=== PATIENT | male | born 1975 | race Caucasian/White ===

== ENCOUNTER → 2019-04-30 | Outpatient (CLI) | payer BC ==
--- NOTE | 2019-04-30 12:20 | P.STRESS ---
- Stress Test Note Stress Test Results/Findings: Exam Performed: stress echo exercise Exam Date: 04/30/19 Reason for Exam: Abnormal EKG Height: 6 ft 1 in Weight: 102.058 kg Protocol: Donnie Stage: 5 Duration of Exercise: 12:46 Resting Heart Rate: 64 Resting Blood Pressure: 106/61 Maximum Achieved Heart Rate: 172 Maximum Achieved Blood Pressure: 189/102 85% PMHR: 152 100% PMHR: 179 METS: 12.9 Technologist Comment: Stress Test Results/Findings: This is a 43-year-old gentleman with history of hypertension being evaluated for symptoms of chest pain. Stress data: Baseline EKG showed sinus rhythm with normal NC interval and QRS duration with mild J-point elevation in inferior leads size to fit the repolarization. Blood pressure at rest is 106/61 with pulse rate of 64. Patient walked on a Donnie protocol for 12 minutes and 46 seconds achieving a maximum heart rate of 172 with peak blood pressure of 189/102. EKGs taken during and after exercise did not reveal any significant changes from the baseline. Echo data: Baseline echo images show normal wall motion and thickening. Exercise echo images showed augmentation of wall motion and thickening in all the segments. Final impression: #1. Negative stress test #2. Excellent exercise capacity #3. Negative stress echo.
--- NOTE | 2019-05-01 11:53 | ECHOS ---
- Stress Test Note Stress Test Results/Findings: Exam Performed: stress echo exercise Exam Date: 04/30/19 Reason for Exam: Abnormal EKG Height: 6 ft 1 in Weight: 102.058 kg Protocol: Donnie Stage: 5 Duration of Exercise: 12:46 Resting Heart Rate: 64 Resting Blood Pressure: 106/61 Maximum Achieved Heart Rate: 172 Maximum Achieved Blood Pressure: 189/102 85% PMHR: 152 100% PMHR: 179 METS: 12.9 Technologist Comment: Stress Test Results/Findings: This is a 43-year-old gentleman with history of hypertension being evaluated for symptoms of chest pain. Stress data: Baseline EKG showed sinus rhythm with normal MA interval and QRS duration with mild J-point elevation in inferior leads size to fit the repolarization. Blood pressure at rest is 106/61 with pulse rate of 64. Patient walked on a Donnie protocol for 12 minutes and 46 seconds achieving a maximum heart rate of 172 with peak blood pressure of 189/102. EKGs taken during and after exercise did not reveal any significant changes from the baseline. Echo data: Baseline echo images show normal wall motion and thickening. Exercise echo images showed augmentation of wall motion and thickening in all the segments. Final impression: #1. Negative stress test #2. Excellent exercise capacity #3. Negative stress echo. SULEMA
== END | disposition home or self-care (01) ==
LOC: RADNMMAIN 09:59
PROVIDERS: ATTEND Family Medicine
DX: I11.0 Hypertensive heart disease with heart failure (principal); R94.31 Abnormal electrocardiogram [ECG] [EKG]; I50.9 Heart failure, unspecified
CPT/HCPCS: 93351

== ENCOUNTER → 2019-05-26 | Outpatient (CLI) | payer BC ==
--- NOTE | 2019-05-26 16:02 | XR ---
EXAMINATION TYPE: XR chest 2V DATE OF EXAM: 05/26/2019 COMPARISON: NONE HISTORY: Cough TECHNIQUE: Frontal and lateral views of the chest are obtained. FINDINGS: There is no focal air space opacity, pleural effusion, or pneumothorax postsurgical change s of the left shoulder. Seen. The cardiac silhouette size is within normal limits. The osseous str uctures are intact. IMPRESSION: No acute cardiopulmonary process.
== END | disposition home or self-care (01) ==
LOC: RADXRMAIN 15:12
PROVIDERS: ATTEND Family Medicine
DX: J20.9 Acute bronchitis, unspecified (principal); R05 Cough
CPT/HCPCS: 71046

== ENCOUNTER → 2020-02-17 | Outpatient (CLI) | payer BC ==
--- NOTE | 2020-02-17 11:33 | XR ---
EXAMINATION TYPE: XR chest 2V DATE OF EXAM: 02/17/2020 COMPARISON: 05/26/2019 HISTORY: 44-year-old male with chest pain, R07.9 TECHNIQUE: Frontal and lateral views FINDINGS: The cardiomediastinal silhouette, aorta, and pulmonary vasculature are within normal limits. Lungs an d pleural spaces are clear. IMPRESSION: No acute cardiopulmonary process.
== END | disposition home or self-care (01) ==
LOC: RADXRMAIN 09:02
PROVIDERS: ATTEND Family Medicine
DX: R07.9 Chest pain, unspecified (principal)
CPT/HCPCS: 71046

== ENCOUNTER → 2020-02-24 | Outpatient (CLI) | payer BC ==
--- NOTE | 2020-02-24 10:12 | US ---
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 Lump below sternum Shadowing seen from bone no abnormalities seen. IMPRESSION: No distinct abnormality seen. Correlate clinically.
== END | disposition home or self-care (01) ==
LOC: RADUSWWP 09:32
PROVIDERS: ATTEND Family Medicine
DX: Q76.7 Congenital malformation of sternum (principal)
CPT/HCPCS: 76705